=== PATIENT | female | born 1975 | race Caucasian/White ===

== ENCOUNTER 2021-03-28 10:16 | Emergency (ER) | payer BC, SELFPAY ==
[2021-03-28 12:00] VITALS: BP 114/80; PULSE 80; RESP 18; TEMP 36.8; O2SAT 98
--- NOTE | 2021-03-28 12:19 | ED.EYEPROB ---
HPI - Eye Problem General Chief complaint: Eye Problems Stated complaint: Rt Eye Irritation Time Seen by Provider: 03/28/21 12:20 Source: patient and RN notes reviewed Mode of arrival: ambulatory Limitations: no limitations History of Present Illness HPI Narrative: Michelle is a 45-year-old female patient who ambulated into the [facility]. Patient has a 2-day history of her right eye being erythemic with yellow drainage. Left eye started today. Patient denies any vision changes. Patient denies any pain except in the right eye where she has a stye. Patient has been using warm compresses, an antibiotic drop of her 's. And Motrin or Tylenol. MD chief complaint: eye redness Related Data Home Medications Medication Instructions Recorded Confirmed cholecalciferol (vitamin D3) 1,250 50,000 unit PO WEEKLY 05/04/19 03/28/21 mcg (50,000 unit) capsule Allergies Allergy/AdvReac Type Severity Reaction Status Date / Time Bleach (Sodium Hypochlorite) Allergy Intermediate Nausea and Verified 03/28/21 12:15 vomiting codeine Allergy Mild Nausea and Verified 03/28/21 12:15 Vomiting clarithromycin AdvReac Intermediate vomiting Verified 03/28/21 12:15 Review of Systems Review of Systems: CONSTITUTIONAL: Denies body aches, fever, chills, or sweats. EYES: Denies visual changes, +redness, + discharge. ENT: Denies rhinorrhea, congestion, sore throat, or otalgia. CARDIOVASCULAR: Denies chest pain, palpitations, or edema. RESPIRATORY: Denies cough or dyspnea. GASTROINTESTINAL: Denies abdominal pain, nausea, vomiting, or diarrhea. GENITOURINARY: Denies dysuria or hematuria. SKIN: Denies rash, itching, or wounds. MUSCULOSKELETAL: Denies back pain, joint pain, or myalgia. NEUROLOGIC: Denies headache, numbness, tingling, or weakness. PSYCH: Denies depression or anxiety. All systems reviewed & are unremarkable except as noted in HPI and below PMFSH Past Medical History Medical History COVID-19 Morbid obesity PCOS (polycystic ovarian syndrome) Surgical History Surgical History H/O bariatric surgery gastric sleeve August 2019 H/O total vaginal hysterectomy H/O umbilical hernia repair S/P cholecystectomy Family History Family History Father Hypertension Mother Hypertension Social History Social History Social History: Smoking status: Never smoker Second hand tobacco smoke exposure: No Alcohol intake: former Alcohol use details: rare Substance use: never Substance use type: does not use Gender identity (if verbalized by the patient): Female Sexual Orientation (if Verbalized by the Patient): Straight or Heterosexual Comments At time of signature, I have reviewed and agree with nursing past medical, surgical, social and family history unless otherwise noted. Please see nursing chart for further information. There is no relevant family history pertinent to the presenting complaint Exam Narrative: GENERAL: Well-appearing, well-nourished, and in no acute distress. HEAD: Normocephalic, atraumatic. EYES: EOMI. minimal redness noted to bilateral eyes. Small amount of yellow drainage in the right eye, small hordeolum noted in the right lower lid ENT: Mucous membranes pink and moist. Nares clear. No rhinorrhea. TMs normal bilaterally. Throat normal. Uvula midline. NECK: Normal AROM. Supple. No lymphadenopathy. CHEST: No respiratory distress. Clear to auscultation. HEART: Regular rate and rhythm. No murmur appreciated. Normal peripheral pulses. ABDOMEN: Soft, nontender, nondistended, normal active bowel sounds. MUSCULOSKELETAL: No bony tenderness. EXTREMITIES: Normal range of motion. No edema. SKIN: Warm, dry, no rash. Capillary refill normal. Normal skin t
== END 2021-03-28 12:38 | disposition home or self-care (01) ==
PROVIDERS: Emergency Provider Nurse Practitioner Family; PCP Family Medicine
DX: H10.9 Unspecified conjunctivitis (principal)
CPT/HCPCS: 99213; G0463